=== PATIENT | female | born 1985 | race African-American/Black ===

== ENCOUNTER 2019-01-20 12:54 | Inpatient (IN) | payer OTHER ==
[~2019-01-20] VITALS: Ht 157.5 cm; Wt 76.7 kg
[2019-02-02] MEDS ORDERED: PRENATAL CAPLE1 EAC1 PO (08:50)
== END 2019-02-04 13:19 | disposition home or self-care (01) | DRG 807 ==
LOC: LDR 02-01 15:30 → OB/GYN 02-02 19:34
PROVIDERS: ADMIT Obstetrics & Gynecology
PROC: 10E0XZZ Delivery of Products of Conception, External Approach (ICD-10-PCS; principal; 2019-02-02)
PROC: 0UQGXZZ Repair Vagina, External Approach (ICD-10-PCS; 2019-02-02)
PROC: 3E0P7VZ Introduction of Hormone into Female Reproductive, Via Natural or Artificial Opening (ICD-10-PCS; 2019-02-02)
PROC: 3E033VJ Introduction of Other Hormone into Peripheral Vein, Percutaneous Approach (ICD-10-PCS; 2019-02-02)
PROC: 4A1HXCZ Monitoring of Products of Conception, Cardiac Rate, External Approach (ICD-10-PCS; 2019-02-02)
DX: O71.4 Obstetric high vaginal laceration alone (principal); Z37.0 Single live birth; Z3A.40 40 weeks gestation of pregnancy